=== PATIENT | female | born 2000 | race Hispanic/Latino ===

== ENCOUNTER 2022-10-10 11:47 | Emergency (ER) | payer OTHER ==
[2022-10-10 13:08] LABS: Hematocrit 37.4 % (36.0-45.0); Lymphocytes % 6.9 % (15.3-44.8); MCV 83.7 fL (80-100); MPV 9.5 fL (7.6-11.3); RBC Red Blood Cell Count 4.47 M/uL (3.86-4.86)
[2022-10-10 13:24] LABS: Potassium 4.6 mmol/L (3.5-5.1)
[2022-10-10] MEDS ORDERED: FENTANYL CITR 100 MCG/2 ML ONE (13:27)
--- NOTE | 2022-10-10 13:44 | RAD REPORT ---
EXAM DESCRIPTION: RAD - Knee Left 3 View - 10/10/2022 1:29 pm CLINICAL HISTORY: Left knee pain FINDINGS: No fracture or dislocation is seen.
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
[2022-10-10 15:36] VITALS: TEMP 98; O2SAT 100
[2022-10-10 15:50] VITALS: BP 114/68
== END 2022-10-10 15:21 | disposition home or self-care (01) ==
LOC: ER 11:47
DX: R10.30 Lower abdominal pain, unspecified (principal); R42 Dizziness and giddiness; M54.2 Cervicalgia; M25.562 Pain in left knee; V49.40XA Driver injured in collision with unspecified motor vehicles in traffic accident, initial encounter; I10 Essential (primary) hypertension
CPT/HCPCS: 85025; 80048; 36415; 86900; 86850; 84703; 86901; 70450; 71250; 72125; 73562; 96374; 99284; J3010